=== PATIENT | male | born 1955 | race Two or more races ===

== ENCOUNTER 2019-07-28 12:27 | Day surgery (SDC) | payer OTHER ==
[~2019-07-28] VITALS: Ht 193 cm; Wt 125.7 kg
[~2019-07-28 12:27] MED LIST: METFORMIN; METOPROLOL
[2019-07-28 13:27] VITALS: Ht 193 cm; Wt 125.7 kg
[2019-07-28] MEDS ORDERED: PROPOFOL 40 ML ONE (14:14)
[2019-07-28 14:15] VITALS: BP 166/84; PULSE 73; RESP 14
[2019-07-28] MEDS ORDERED: GLYCOPYRROLATE 0.4 MG INJ ONE (14:15)
[2019-07-28 15:12] VITALS: BP 121/84; PULSE 70
== END 2019-07-28 15:28 | disposition home or self-care (01) ==
LOC: GIL 12:27
PROVIDERS: ATTEND Internal Medicine Gastroenterology
DX: Z12.11 Encounter for screening for malignant neoplasm of colon (principal); D12.5 Benign neoplasm of sigmoid colon; K64.8 Other hemorrhoids; K21.9 Gastro-esophageal reflux disease without esophagitis; K29.60 Other gastritis without bleeding; I10 Essential (primary) hypertension; E11.9 Type 2 diabetes mellitus without complications; F17.200 Nicotine dependence, unspecified, uncomplicated; Z79.84 Long term (current) use of oral hypoglycemic drugs
CPT/HCPCS: 43239; 45380; 82962; 88305; Z7610